=== PATIENT | male | born 1955 | race Caucasian/White ===

== ENCOUNTER 2017-06-16 23:24 | Emergency (ER) | payer OTHER ==
[2017-06-17 00:26] LABS: HEMATOCRIT 40.2 % (40.0-51.0); HEMOGLOBIN 12.9 g/dL (13.6-17.8); MEAN CORPUS HGB CONC 32.1 g/dL (32.0-36.0); MEAN CORPUSCULAR HEMOGLOB 29.2 pg (26.0-34.0); MEAN PLATELET VOLUME 10.2 fL (9.2-13.0); PLATELET COUNT 415 10/3/uL (150-400); RBC DISTRIBUTION WIDTH 12.9 % (12.0-16.0); RED CELL COUNT 4.42 10/6/uL (4.7-6.1); WHITE BLOOD CELLS 12.5 10/3/uL (4.5-10.5)
[2017-06-17 03:46] LABS: BUN (BLOOD UREA NITROGEN) 11 MG/DL (6-23); CALCIUM, SERUM 10.1 MG/DL (8.5-10.4); CHLORIDE, SERUM 96 MMOL/L (96-112); CO2 (CARBON DIOXIDE) 30 MMOL/L (24-34); CREATININE 0.79 MG/DL (0.70-1.30); GFR AFRICAN AMERICAN 113 ML/MIN (>=60); GFR NON AFRICAN AMERICAN 98 ML/MIN (>=60); GLUCOSE, SERUM 82 MG/DL (60-99); POTASSIUM, SERUM 3.9 MMOL/L (3.5-5.3); SODIUM, SERUM 135 MMOL/L (135-148)
== END 2017-06-17 04:45 | disposition home or self-care (01) ==
LOC: ER 23:24
PROVIDERS: Emergency Medicine; Nurse Practitioner
DX: R21 Rash and other nonspecific skin eruption (principal); M79.604 Pain in right leg; M79.605 Pain in left leg; G89.29 Other chronic pain
CPT/HCPCS: 80048; 83880; 85027; 99284